=== PATIENT | female | born 1935 | race Caucasian/White ===

== ENCOUNTER 2017-12-07 19:44 | Inpatient (IN) | payer MEDICARE ==
[~2017-12-07] VITALS: Ht 157.5 cm; Wt 63.7 kg
[2017-12-07 20:00] LABS: BASOPHILS # (AUTO) 0.1 (0.0-0.1); BASOPHILS % 0.3 % (0.0-1.0); HEMATOCRIT 32.3 % (34.2-44.1); LYMPHOCYTES # (AUTO) 1.1 (1.0-3.2); MEAN CORPUSCULAR HEMOGLOBIN 31.3 pg (28-32); MEAN CORPUSCULAR HGB CONC 34.1 g/dL (31-35); MONOCYTES # (AUTO) 1.6 (0.2-0.8); MONOCYTES % 5.7 % (4.4-11.3); NEUTROPHILS # (AUTO) 24.1 (2.1-6.9); NEUTROPHILS % 88.4 % (38.7-80.0); PLATELET COUNT 152 x10e3/uL (140-360); RED BLOOD COUNT 3.51 x10e6/uL (3.6-5.1); RED CELL DISTRIBUTION WIDTH 13.1 % (11.7-14.4)
[2017-12-07] MEDS ORDERED: CEFTRIAXONE SOD 1 GM VIAL IV ONE (20:00)
[2017-12-07] MEDS ORDERED: SODIUM CHLORIDE 0.9% 1000ML 1,000 ML IV ONE (20:00)
[2017-12-07] MEDS: ACETAMINOPHEN 1000 MG/100 ML IV STA ×2 (20:01→20:49)
[2017-12-07 20:09] LABS: BILIRUBIN,URINE NEGATIVE (NEGATIVE); CLARITY,URINE CLOUDY (CLEAR); COLOR,URINE YELLOW (YELLOW); KETONES,URINE NEGATIVE (NEGATIVE); LEUKOCYTE ESTERASE ,URINE 1+ (NEGATIVE); NITRITE,URINE NEGATIVE (NEGATIVE); PROTEIN,URINE DIPSTICK 2+ (NEGATIVE); URINE UROBILINOGEN 0.2 mg/dL (0.2 - 1)
[2017-12-07 20:13] LABS: ALBUMIN 2.4 g/dL (3.5-5.0); ALBUMIN/GLOBULIN RATIO 0.6 (0.8-2.0); ANION GAP 16.5 mmol/L (8-16); CALCIUM 9.4 mg/dL (8.4-10.2); CREATININE, SERUM 1.26 mg/dL (0.57-1.11); POTASSIUM 3.5 mmol/L (3.5-5.1)
[2017-12-07 20:17] LABS: CREATINE KINASE MB 0.4 ng/mL (0-5.0)
[2017-12-07 20:21] LABS: RBC,URINE 0-5 /HPF (0-5); WBC,URINE (MAN) >50 /HPF (0-5)
[2017-12-07 20:22] LABS: BACTERIA,URINE MANY /HPF; EPITHELIAL CELLS,URINE FEW /LPF
[2017-12-07 20:27] LABS: LYMPHOCYTES % (MANUAL) 5 % (19-48); MONOCYTES % (MANUAL) 3 % (3.4-9.0); NEUTROPHILS % (MANUAL) 86 % (40-74)
[2017-12-07 20:28] LABS: BAND NEUTROPHILS % (MANUAL) 6 %; PLATELET ESTIMATE ADEQUATE; PLATELET MORPHOLOGY COMMENT NORMAL; RBC MORPHOLOGY COMMENT NORMAL
[2017-12-07 23:00] VITALS: BP 136/80
--- NOTE | 2017-12-07 23:41 | Diagnostic Imaging Report ---
CHEST 1 VIEW, 12/07/2017 10:51 PM Technique: CHEST 1 VIEW Comparison: None available. Clinical history: fever Findings: See Impression Impression: Limited single portable view of the chest. 1. Mildly enlarged cardiac silhouette, accentuated by technique. Aortic atherosclerotic calcifications. 2. Scattered linear scarring or atelectasis. No edema or consolidation. 3. No effusion or pneumothorax. Signed by: Dr Jaylin Zhu MD on 12/07/2017 11:15 PM
[2017-12-07] MEDS ORDERED: DAILY VITE1 EACH PO (23:43)
[2017-12-07] MEDS ORDERED: CARVEDILOL3.125 MG PO (23:43)
[2017-12-07] MEDS ORDERED: VITAMIN E400 UNI1 PO (23:43)
[2017-12-07] MEDS ORDERED: PRESERVISION A1 EACH PO (23:43)
[2017-12-07] MEDS ORDERED: CRANBERRY CONC500 MG PO (23:43)
[2017-12-07] MEDS ORDERED: ASPIRIN81 MG PO (23:43)
[2017-12-07] MEDS ORDERED: ARICEPT5 MG PO (23:43)
[2017-12-07] MEDS ORDERED: ATORVASTATIN CA20 MG PO (23:43)
[2017-12-07] MEDS ORDERED: ESTER-C 500 MG1 EACH PO (23:43)
[2017-12-07] MEDS ORDERED: CLONIDINE HCL0.1 MG PO (23:43)
[2017-12-07] MEDS ORDERED: [UNRECOGNIZED DRUG - OTHER] PO (23:43)
[2017-12-07] MEDS ORDERED: CALCITRATE + V1 EACH PO (23:43)
[2017-12-07] MEDS ORDERED: DOCUSATE SODIU100 MG PO (23:43)
[2017-12-07] MEDS ORDERED: FOLIC ACID1 MG PO (23:43)
[2017-12-07] MEDS ORDERED: THERA-M CAPLET1 EAC1 PO (23:43)
[2017-12-07] MEDS ORDERED: PANTOPRAZOLE SO40 MG PO (23:43)
[2017-12-07] MEDS ORDERED: VITAMIN B-121000 MCG PO (23:43)
[2017-12-07] MEDS ORDERED: FUROSEMIDE40 MG PO (23:43)
[2017-12-07] MEDS ORDERED: NIFEDIPINE ER30 M1 PO (23:43)
[2017-12-07] MEDS ORDERED: ALENDRONATE SOD10 MG PO (23:43)
[2017-12-07] MEDS ORDERED: VITAMIN D250000 UNIT PO (23:43)
[2017-12-07] MEDS ORDERED: HYDRALAZINE HCL25 MG PO ×2 (23:43→23:56)
[2017-12-07] MEDS ORDERED: CLOPIDOGREL75 MG PO (23:43)
[2017-12-07] MEDS ORDERED: FERROUS SULFAT325 MG PO (23:43)
[2017-12-07] MEDS ORDERED: NITROSTAT0.4 MG SL (23:56)
[2017-12-07] MEDS ORDERED: LOPERAMIDE2 MG PO (23:56)
[2017-12-07] MEDS ORDERED: ACETAMINOPHEN325 M1 PO (23:56)
[2017-12-07] MEDS ORDERED: NORCO 5-325 TA1 EACH PO ×2 (23:56)
[2017-12-08] VITALS (8 sets, daily range): BP systolic 121–174; BP diastolic 6–77
[2017-12-08] MEDS ORDERED: ONDANSETRON HCL INJ 2 MG/ML VIAL IV PRN
[2017-12-08] MEDS ORDERED: SODIUM CHLORIDE 0.9% 1000ML 1,000 ML IV ONE
[2017-12-08] MEDS ORDERED: ACETAMINOPHEN 1000 MG/100 ML IV STA (00:34)
[2017-12-08] MEDS ORDERED: SODIUM CHLORIDE 0.9% 1000ML 1,000 ML ONE (05:31)
[2017-12-08 07:05] LABS: BASOPHILS # (AUTO) 0.1 (0.0-0.1); BASOPHILS % 0.3 % (0.0-1.0); HEMATOCRIT 30.7 % (34.2-44.1); HEMOGLOBIN 10.4 g/dL (12.0-16.0); LYMPHOCYTES # (AUTO) 0.7 (1.0-3.2); LYMPHOCYTES % 3.2 % (18.0-39.1); MEAN CORPUSCULAR HEMOGLOBIN 31.5 pg (28-32); MEAN CORPUSCULAR HGB CONC 33.9 g/dL (31-35); MONOCYTES # (AUTO) 1.2 (0.2-0.8); NEUTROPHILS # (AUTO) 18.7 (2.1-6.9); NEUTROPHILS % 89.8 % (38.7-80.0); PLATELET COUNT 139 x10e3/uL (140-360); RED CELL DISTRIBUTION WIDTH 13.1 % (11.7-14.4)
[2017-12-08 07:36] LABS: ALBUMIN 2.1 g/dL (3.5-5.0); ALBUMIN/GLOBULIN RATIO 0.5 (0.8-2.0); ANION GAP 13.3 mmol/L (8-16); CALCIUM 8.8 mg/dL (8.4-10.2); CREATININE, SERUM 0.96 mg/dL (0.57-1.11); POTASSIUM 3.3 mmol/L (3.5-5.1)
[2017-12-08] MEDS ORDERED: DEXTROSE 50% SYRINGE 50 ML IV PRN (10:30)
[2017-12-08] MEDS: INSULIN LISPRO 100 UNIT/1 ML 3ML VIAL SQ SCH ×3 (11:30→21:00)
[2017-12-08] MEDS ORDERED: POTASSIUM CHLORIDE 20 MEQ TAB CR PO STA (12:49)
[2017-12-08] MEDS ORDERED: HYDROCODONE/APAP 5MG-325MG TAB PO PRN (13:00)
--- NOTE | 2017-12-08 14:02 | Diagnostic Imaging Report ---
PROCEDURE: A single AP view of the chest. COMPARISON: 12/07/17 INDICATIONS: SHORTNESS OF BREATH FINDINGS: limited by mild rotation. Lines/tubes: None. Lungs: The lungs are well inflated. Biapical scaring. Suspected mild interstitial edema. Pleura: There is no significant pleural effusion or pneumothorax. Heart and mediastinum: Prominent cardiomediastinal silhouette, accentuated by rotation and technique. Aorta is calcified and tortuous. Bones: No acute bony abnormality. IMPRESSION: Limited by mild rotation. Suspected mild interstitial edema. Dictated by: Obey Ramos M.D. on 12/08/2017 at 14:09 Electronically approved by: Obey Ramos M.D. on 12/08/2017 at 14:09
[2017-12-08] MEDS: CEFEPIME HCL 1 GM VIAL IV SCH (14:19)
[2017-12-08] MEDS ORDERED: DIATRIZOATE MEGL/DIATRIZOA SOD 30 ML BTL PO ONE (14:43)
[2017-12-08] MEDS: IPRATROPIUM BROMIDE 0.02% 2.5 ML NEB NEB SCH ×2 (14:53→19:15)
[2017-12-08] MEDS: CARVEDILOL 3.125 MG TAB PO SCH (17:00)
[2017-12-08] MEDS: HYDRALAZINE HCL 25 MG TAB PO SCH (17:30)
--- NOTE | 2017-12-08 19:36 | Diagnostic Imaging Report ---
EXAM: CT Abdomen and Pelvis WITHOUT contrast INDICATION: \S\abd pain fever \[id number] \S\[id number] COMPARISON: None. TECHNIQUE: Abdomen and pelvis were scanned utilizing a multidetector helical scanner from the lung base to the pubic symphysis without administration of IV contrast. Absence of intravenous contrast decreases sensitivity for detection of focal lesions and vascular pathology. Coronal and sagittal reformations were obtained. Routine protocol was performed. IV CONTRAST: None ORAL CONTRAST: Gastrografin. COMPLICATIONS: None RADIATION DOSE: Total DLP: 395.23 mGy*cm Estimated effective dose: (DLP x 0.015 x size factor) mSv CTDIvol has been reviewed. It is below the limits set by the Radiation Protocol Committee (RPC). FINDINGS: LINES and TUBES: Lange catheter in place. LOWER THORAX: Partially imaged coronary artery calcifications and possibly stent, mitral valve calcification, and aortic annulus stent. Trace right pleural effusion with adjacent compressive atelectasis. Bibasilar linear atelectasis/scarring. HEPATOBILIARY: Unenhanced liver is unremarkable. No biliary ductal dilation. GALLBLADDER: No radio-opaque stones or sludge. No wall thickening. SPLEEN: No splenomegaly. PANCREAS: No focal masses or ductal dilatation. ADRENALS: 2.5 x 3.5 cm left adrenal mass with internal fat density (series 2, image 20) us. KIDNEYS/URETERS: No hydronephrosis. Limited for evaluation of renal parenchyma without intravenous contrast. Right renal perinephric fat stranding. No stones. GI TRACT: No abnormal distention, wall thickening, or evidence of bowel obstruction. Colonic diverticulosis without evidence of diverticulitis. Appendix is not visualized with certainty. Contrast is visualized within colon. PELVIC ORGANS/BLADDER: Limited evaluation of pelvic organs due to streak artifacts from bilateral hip prosthesis. Partially imaged calcified uterine vessels and probably a small left uterine calcified fibroid. LYMPH NODES: No lymphadenopathy. VESSELS: There is severe atherosclerotic disease in the aorta and major arterial branches. PERITONEUM / RETROPERITONEUM: No free air or fluid. BONES: Bilateral hip arthroplasty. Generalized demineralization limits evaluation. Severe T12 compression fracture of indeterminate age. Grade 1 retrolisthesis of L4 in relation to L3 and L5 in relation to L4. SOFT TISSUES: Unremarkable. IMPRESSION: 1. Limited study without intravenous contrast. 2. Mildly prominent right kidney with increased right perinephric fat stranding. Infectious process like pyelonephritis cannot be excluded. 3. Colonic diverticulosis without evidence of diverticulitis. 4. Severe arteriosclerosis. 5. Trace right pleural effusion with adjacent compressive atelectasis. 6. 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 Signed by: Dr. Obey Ramos MD on 12/08/2017 6:48 PM
[2017-12-08] MEDS ORDERED: CEFTRIAXONE SOD 1 GM VIAL IV SCH ×2 (20:00)
[2017-12-08] MEDS: ACETAMINOPHEN 325 MG TAB PO PRN (20:50)
[2017-12-08] MEDS: ATORVASTATIN 40 MG TAB PO SCH (20:57)
[2017-12-08] MEDS: HEPARIN SOD (PORCINE) 5,000 UNIT/ML VIAL SC SCH (20:59)
[2017-12-08] MEDS ORDERED: ATORVASTATIN 20 MG TAB PO SCH (21:00)
[2017-12-09] MEDS: CEFEPIME HCL 1 GM VIAL IV SCH (00:54)
[2017-12-09 05:16] LABS: BASOPHILS # (AUTO) 0.1 (0.0-0.1); BASOPHILS % 0.5 % (0.0-1.0); HEMATOCRIT 32.5 % (34.2-44.1); HEMOGLOBIN 11.1 g/dL (12.0-16.0); LYMPHOCYTES # (AUTO) 0.7 (1.0-3.2); LYMPHOCYTES % 5.2 % (18.0-39.1); MEAN CORPUSCULAR HEMOGLOBIN 31.1 pg (28-32); MEAN CORPUSCULAR HGB CONC 34.2 g/dL (31-35); MONOCYTES # (AUTO) 1.1 (0.2-0.8); MONOCYTES % 7.9 % (4.4-11.3); NEUTROPHILS # (AUTO) 11.5 (2.1-6.9); NEUTROPHILS % 84.6 % (38.7-80.0); PLATELET COUNT 146 x10e3/uL (140-360); RED BLOOD COUNT 3.57 x10e6/uL (3.6-5.1); RED CELL DISTRIBUTION WIDTH 13.2 % (11.7-14.4)
[2017-12-09 05:50] LABS: ANION GAP 15.6 mmol/L (8-16); BLOOD UREA NITROGEN 26 mg/dL (7-26); BUN/CREATININE RATIO 31 (6-25); CALCIUM 8.8 mg/dL (8.4-10.2); CARBON DIOXIDE 24 mmol/L (22-29); CHLORIDE 102 mmol/L (98-107); CREATININE, SERUM 0.83 mg/dL (0.57-1.11); EST GLOMERULAR FILTRATION RATE > 60 ML/MIN (60-); GLUCOSE 151 mg/dL (74-118); POTASSIUM 3.6 mmol/L (3.5-5.1); SODIUM 138 mmol/L (136-145)
[2017-12-09 06:33] VITALS: BP 166/75
[2017-12-09 07:45] VITALS: BP 166/75
[2017-12-09] MEDS: IPRATROPIUM BROMIDE 0.02% 2.5 ML NEB NEB SCH ×4 (07:45→20:00)
[2017-12-09 08:00] VITALS: BP 166/77
[2017-12-09] MEDS: INSULIN LISPRO 100 UNIT/1 ML 3ML VIAL SQ SCH ×4 (08:30→21:37)
[2017-12-09] MEDS: HEPARIN SOD (PORCINE) 5,000 UNIT/ML VIAL SC SCH ×2 (08:45→21:37)
[2017-12-09] MEDS: HYDRALAZINE HCL 25 MG TAB PO SCH ×2 (08:45→17:00)
[2017-12-09] MEDS: CARVEDILOL 3.125 MG TAB PO SCH ×2 (08:45→17:00)
[2017-12-09] MEDS: ASPIRIN 81 MG CHEW TAB PO SCH (08:45)
[2017-12-09] MEDS ORDERED: DONEPEZIL HCL 5 MG TAB PO SCH (09:00)
[2017-12-09] MEDS: ARICEPT 23 MG PO SCH (09:00)
[2017-12-09 12:00] VITALS: BP 187/85
[2017-12-09] MEDS: CEFTRIAXONE SOD 1 GM VIAL IV SCH (14:40)
[2017-12-09] MEDS: ACETAMINOPHEN 325 MG TAB PO PRN (16:22)
[2017-12-09 16:26] VITALS: BP 178/76
[2017-12-09] MEDS: LACTOBACILLUS ACIDOPHILUS CAPSULE PO SCH (17:00)
[2017-12-09] MEDS: VANCOMYCIN 250MG/5ML ORAL SOLN PO SCH (18:00)
[2017-12-09 20:00] VITALS: BP 156/76
[2017-12-09] MEDS: ATORVASTATIN 40 MG TAB PO SCH (21:35)
[2017-12-10] VITALS (7 sets, daily range): BP systolic 151–192; BP diastolic 75–96
[2017-12-10] MEDS: VANCOMYCIN 250MG/5ML ORAL SOLN PO SCH ×5 (00:20→23:54)
[2017-12-10 05:32] LABS: BASOPHILS # (AUTO) 0.1 (0.0-0.1); BASOPHILS % 0.4 % (0.0-1.0); HEMATOCRIT 33.2 % (34.2-44.1); HEMOGLOBIN 11.2 g/dL (12.0-16.0); LYMPHOCYTES # (AUTO) 1.3 (1.0-3.2); MEAN CORPUSCULAR HEMOGLOBIN 30.8 pg (28-32); MEAN CORPUSCULAR HGB CONC 33.7 g/dL (31-35); MEAN CORPUSCULAR VOLUME 91.2 fL (81-99); MONOCYTES # (AUTO) 1.6 (0.2-0.8); MONOCYTES % 11.4 % (4.4-11.3); NEUTROPHILS # (AUTO) 10.6 (2.1-6.9); NEUTROPHILS % 76.7 % (38.7-80.0); PLATELET COUNT 182 x10e3/uL (140-360); RED BLOOD COUNT 3.64 x10e6/uL (3.6-5.1); RED CELL DISTRIBUTION WIDTH 13.6 % (11.7-14.4)
[2017-12-10 05:49] LABS: ANION GAP 16.2 mmol/L (8-16); BLOOD UREA NITROGEN 20 mg/dL (7-26); BUN/CREATININE RATIO 25 (6-25); CALCIUM 8.6 mg/dL (8.4-10.2); CARBON DIOXIDE 24 mmol/L (22-29); CHLORIDE 99 mmol/L (98-107); CREATININE, SERUM 0.79 mg/dL (0.57-1.11); EST GLOMERULAR FILTRATION RATE > 60 ML/MIN (60-); GLUCOSE 131 mg/dL (74-118); POTASSIUM 3.2 mmol/L (3.5-5.1); SODIUM 136 mmol/L (136-145)
[2017-12-10] MEDS: INSULIN LISPRO 100 UNIT/1 ML 3ML VIAL SQ SCH ×4 (07:30→21:53)
[2017-12-10] MEDS: IPRATROPIUM BROMIDE 0.02% 2.5 ML NEB NEB SCH ×4 (07:30→19:10)
[2017-12-10] MEDS: ASPIRIN 81 MG CHEW TAB PO SCH (08:42)
[2017-12-10] MEDS: HYDRALAZINE HCL 25 MG TAB PO SCH ×3 (08:42→21:53)
[2017-12-10] MEDS: LACTOBACILLUS ACIDOPHILUS CAPSULE PO SCH ×2 (08:43→17:55)
[2017-12-10] MEDS: ARICEPT 23 MG PO SCH (08:43)
[2017-12-10] MEDS: CARVEDILOL 3.125 MG TAB PO SCH ×2 (08:43→17:56)
[2017-12-10] MEDS: HEPARIN SOD (PORCINE) 5,000 UNIT/ML VIAL SC SCH ×2 (08:49→21:53)
[2017-12-10] MEDS: CEFTRIAXONE SOD 1 GM VIAL IV SCH (12:56)
[2017-12-10] MEDS ORDERED: SODIUM CHLORIDE 0.9% 1000ML 1,000 ML IV SCH (15:00)
[2017-12-10] MEDS ORDERED: POTASSIUM CHLORIDE 20 MEQ TAB CR PO NR (15:30)
[2017-12-10] MEDS: ATORVASTATIN 40 MG TAB PO SCH (21:53)
[2017-12-11] VITALS (9 sets, daily range): BP systolic 139–186; BP diastolic 63–85
[2017-12-11 05:57] LABS: BASOPHILS # (AUTO) 0.1 (0.0-0.1); BASOPHILS % 0.5 % (0.0-1.0); HEMATOCRIT 30.7 % (34.2-44.1); HEMOGLOBIN 10.3 g/dL (12.0-16.0); LYMPHOCYTES # (AUTO) 1.5 (1.0-3.2); LYMPHOCYTES % 8.3 % (18.0-39.1); MEAN CORPUSCULAR HEMOGLOBIN 30.9 pg (28-32); MEAN CORPUSCULAR HGB CONC 33.6 g/dL (31-35); MEAN CORPUSCULAR VOLUME 92.2 fL (81-99); MONOCYTES # (AUTO) 1.3 (0.2-0.8); MONOCYTES % 7.5 % (4.4-11.3); NEUTROPHILS # (AUTO) 14.3 (2.1-6.9); NEUTROPHILS % 81.6 % (38.7-80.0); PLATELET COUNT 181 x10e3/uL (140-360); RED BLOOD COUNT 3.33 x10e6/uL (3.6-5.1); RED CELL DISTRIBUTION WIDTH 13.8 % (11.7-14.4)
[2017-12-11 06:08] LABS: ANION GAP 12.7 mmol/L (8-16); BLOOD UREA NITROGEN 27 mg/dL (7-26); BUN/CREATININE RATIO 33 (6-25); CALCIUM 7.9 mg/dL (8.4-10.2); CARBON DIOXIDE 23 mmol/L (22-29); CHLORIDE 103 mmol/L (98-107); CREATININE, SERUM 0.81 mg/dL (0.57-1.11); EST GLOMERULAR FILTRATION RATE > 60 ML/MIN (60-); GLUCOSE 153 mg/dL (74-118); MAGNESIUM 1.2 MG/DL (1.3-2.1); POTASSIUM 3.7 mmol/L (3.5-5.1); SODIUM 135 mmol/L (136-145)
[2017-12-11] MEDS: VANCOMYCIN 250MG/5ML ORAL SOLN PO SCH ×3 (06:39→17:08)
[2017-12-11] MEDS: IPRATROPIUM BROMIDE 0.02% 2.5 ML NEB NEB SCH ×4 (07:08→19:40)
[2017-12-11 07:14] LABS: LYMPHOCYTES % (MANUAL) 8 % (19-48); MONOCYTES % (MANUAL) 2 % (3.4-9.0); NEUTROPHILS % (MANUAL) 90 % (40-74); RBC MORPHOLOGY COMMENT NORMAL
[2017-12-11 07:15] LABS: HYPOCHROMASIA SLIGHT; PLATELET ESTIMATE ADEQUATE; PLATELET MORPHOLOGY COMMENT FEW LARGE
[2017-12-11] MEDS: INSULIN LISPRO 100 UNIT/1 ML 3ML VIAL SQ SCH ×4 (07:30→22:14)
[2017-12-11] MEDS: ARICEPT 23 MG PO SCH (08:00)
[2017-12-11] MEDS: ASPIRIN 81 MG CHEW TAB PO SCH (08:06)
[2017-12-11] MEDS: HYDRALAZINE HCL 25 MG TAB PO SCH ×3 (08:06→22:14)
[2017-12-11] MEDS: LACTOBACILLUS ACIDOPHILUS CAPSULE PO SCH ×2 (08:07→17:08)
[2017-12-11] MEDS: CARVEDILOL 3.125 MG TAB PO SCH (08:07)
[2017-12-11] MEDS: HEPARIN SOD (PORCINE) 5,000 UNIT/ML VIAL SC SCH ×2 (08:19→22:15)
[2017-12-11] MEDS: CEFTRIAXONE SOD 1 GM VIAL IV SCH (13:02)
[2017-12-11] MEDS ORDERED: CARVEDILOL 3.125 MG TAB PO SCH (17:00)
[2017-12-11] MEDS: ATORVASTATIN 40 MG TAB PO SCH (22:15)
[2017-12-12] VITALS (9 sets, daily range): BP systolic 143–194; BP diastolic 70–86
[2017-12-12] MEDS: VANCOMYCIN 250MG/5ML ORAL SOLN PO SCH ×5 (00:28→23:50)
[2017-12-12 05:49] LABS: BASOPHILS # (AUTO) 0.1 (0.0-0.1); BASOPHILS % 0.4 % (0.0-1.0); HEMATOCRIT 28.7 % (34.2-44.1); HEMOGLOBIN 9.7 g/dL (12.0-16.0); LYMPHOCYTES # (AUTO) 1.6 (1.0-3.2); LYMPHOCYTES % 10.4 % (18.0-39.1); MEAN CORPUSCULAR HEMOGLOBIN 31.1 pg (28-32); MEAN CORPUSCULAR HGB CONC 33.8 g/dL (31-35); MONOCYTES # (AUTO) 0.9 (0.2-0.8); MONOCYTES % 5.6 % (4.4-11.3); NEUTROPHILS # (AUTO) 12.6 (2.1-6.9); NEUTROPHILS % 81.9 % (38.7-80.0); PLATELET COUNT 230 x10e3/uL (140-360); RED BLOOD COUNT 3.12 x10e6/uL (3.6-5.1); RED CELL DISTRIBUTION WIDTH 13.9 % (11.7-14.4)
[2017-12-12 06:09] LABS: ALANINE AMINOTRANSFERASE 61 IU/L (0-55); ALBUMIN 1.8 g/dL (3.5-5.0); ALKALINE PHOSPHATASE 145 IU/L (40-150); ANION GAP 13.5 mmol/L (8-16); BILIRUBIN,DIRECT 0.3 mg/dL (0.0-0.5); BLOOD UREA NITROGEN 26 mg/dL (7-26); BUN/CREATININE RATIO 33 (6-25); CARBON DIOXIDE 23 mmol/L (22-29); CHLORIDE 102 mmol/L (98-107); CREATININE, SERUM 0.79 mg/dL (0.57-1.11); EST GLOMERULAR FILTRATION RATE > 60 ML/MIN (60-); GLUCOSE 148 mg/dL (74-118); MAGNESIUM 1.2 MG/DL (1.3-2.1); POTASSIUM 3.5 mmol/L (3.5-5.1); SODIUM 135 mmol/L (136-145)
[2017-12-12] MEDS: IPRATROPIUM BROMIDE 0.02% 2.5 ML NEB NEB SCH ×4 (07:20→19:35)
[2017-12-12] MEDS: INSULIN LISPRO 100 UNIT/1 ML 3ML VIAL SQ SCH ×4 (07:30→20:18)
[2017-12-12] MEDS: ASPIRIN 81 MG CHEW TAB PO SCH (08:23)
[2017-12-12] MEDS: ARICEPT 23 MG PO SCH (08:23)
[2017-12-12] MEDS: HEPARIN SOD (PORCINE) 5,000 UNIT/ML VIAL SC SCH ×2 (08:23→20:17)
[2017-12-12] MEDS: HYDRALAZINE HCL 25 MG TAB PO SCH ×3 (08:23→20:24)
[2017-12-12] MEDS: LACTOBACILLUS ACIDOPHILUS CAPSULE PO SCH ×2 (08:23→17:41)
--- NOTE | 2017-12-12 11:34 | Consultation ---
DATE OF CONSULTATION: December 12, 2017 REASON FOR CONSULTATION: Worsening leukocytosis. Thank you, Dr. Henry, for asking me see this patient. HISTORY: The patient is an 82-year-old woman referred for worsening leukocytosis. She was admitted through the emergency department with acute urinary tract infection with cystitis. She was sent to the emergency department from a shelter on 12/07/2017 with fever, nausea, vomiting, diarrhea and hematuria. The patient developed dysuria a few days prior. In the emergency room, she was noted to have a temperature of 100.3 degrees Fahrenheit, pulse 99, respiratory rate 16, blood pressure 145/70, and oxygen saturation 96% on room air. Initial laboratory studies showed blood leukocyte count of 27,200 with 88% segments, BUN 42, creatinine 1.6, and abnormal urine analysis. A CT scan of the abdomen and pelvis showed mildly prominent right kidney with increased perinephric stranding. Urine and blood cultures later grew E. coli. PAST MEDICAL HISTORY: Diabetes mellitus type 2, hypertension, hyperlipidemia, congestive heart failure, frequent falls due to syncope/aortic valve disease, recurrent urinary tract infection, and dementia. PAST SURGICAL HISTORY: Transcatheter aortic valve replacement, bilateral open reduction and internal fixation of the hips and a repeat left femoral fracture, managed conservatively. ALLERGIES: PENICILLIN AND METOPROLOL. MEDICATIONS: The current antibiotics are ceftriaxone 1 gram IV piggyback q.24 hours and vancomycin 125 mg p.o. q.6 hours. IMMUNIZATION: She received pneumococcal vaccination prior to admission. FAMILY HISTORY: Significant for diabetes mellitus type 2. SOCIAL HISTORY: She is a shelter resident. No alcohol or tobacco use. REVIEW OF SYSTEMS: As per history of present illness. The patient feels much better since admission on monitoring. PHYSICAL EXAMINATION VITALS: T-max 98.3, pulse 98, respiratory rate 18, blood pressure 185/85, weight 140 pounds. GENERAL: No acute distress. HEENT: Normocephalic. There is no icterus or injection of conjunctivae. There is no ear or nasal discharge. Moist oral mucosa. No pharyngeal erythema or exudate. NECK: Supple. No lymphadenopathy or meningismus. LUNGS: Good air entry bilaterally. HEART: Normal S1 and S2. ABDOMEN: Soft. EXTREMITIES: There is no edema, clubbing or cyanosis. SKIN: There is acute erythema. IS ANALYST: Awake, alert, and oriented to person, place, and time. LABORATORY DATA: WBC 15,440, hemoglobin 9.7, platelet 230,000, neutrophils 81.9, lymph 10.4, mono 5.6, eosinophils 0, basophils 0.4. BUN 26, creatinine 0.79, blood glucose 146. On 12/09/2017, stool C. difficile positive. IMPRESSIONS 1. Urinary tract infection with sepsis and bacteremia due to Escherichia coli, present on admission. 2. Clostridium difficile colitis present on admission. PLANS 1. The patient is on adequate antibiotic, although the oral vancomycin may be increased to 250 mg q.6 hours. Seven days of ceftriaxone should do. Anticipate total of 10 days of oral vancomycin. 2. Encouraged oral fluid intake. Electrolytes management as per internal medicine. Job#: [id number] ISIDRO
[2017-12-12] MEDS: CEFTRIAXONE SOD 1 GM VIAL IV SCH (12:26)
[2017-12-12] MEDS ORDERED: POTASSIUM CHLORIDE 20 MEQ TAB CR PO STA (14:03)
[2017-12-12] MEDS ORDERED: MAGNESIUM SULFATE 2GM/50ML 50 ML IV ONE (14:15)
[2017-12-12] MEDS ORDERED: NIFEDIPINE CR 30 MG TAB PO SCH (14:15)
[2017-12-12] MEDS ORDERED: NIFEDIPINE CR 30 MG TAB PO NR (18:15)
[2017-12-12] MEDS: ATORVASTATIN 40 MG TAB PO SCH (20:24)
[2017-12-13] VITALS (8 sets, daily range): BP systolic 143–168; BP diastolic 64–77
[2017-12-13 05:18] LABS: BASOPHILS # (AUTO) 0.1 (0.0-0.1); BASOPHILS % 0.5 % (0.0-1.0); HEMATOCRIT 30.9 % (34.2-44.1); HEMOGLOBIN 10.4 g/dL (12.0-16.0); LYMPHOCYTES # (AUTO) 1.7 (1.0-3.2); LYMPHOCYTES % 11.2 % (18.0-39.1); MEAN CORPUSCULAR HGB CONC 33.7 g/dL (31-35); MONOCYTES # (AUTO) 0.8 (0.2-0.8); NEUTROPHILS # (AUTO) 12.6 (2.1-6.9); NEUTROPHILS % 81.5 % (38.7-80.0); PLATELET COUNT 293 x10e3/uL (140-360); RED BLOOD COUNT 3.36 x10e6/uL (3.6-5.1)
[2017-12-13 06:00] LABS: ANION GAP 13.1 mmol/L (8-16); BLOOD UREA NITROGEN 23 mg/dL (7-26); BUN/CREATININE RATIO 31 (6-25); CALCIUM 8.4 mg/dL (8.4-10.2); CARBON DIOXIDE 24 mmol/L (22-29); CHLORIDE 102 mmol/L (98-107); CREATININE, SERUM 0.74 mg/dL (0.57-1.11); EST GLOMERULAR FILTRATION RATE > 60 ML/MIN (60-); GLUCOSE 162 mg/dL (74-118); MAGNESIUM 1.5 MG/DL (1.3-2.1); POTASSIUM 4.1 mmol/L (3.5-5.1); SODIUM 135 mmol/L (136-145)
[2017-12-13] MEDS: VANCOMYCIN 250MG/5ML ORAL SOLN PO SCH ×3 (06:04→18:25)
[2017-12-13] MEDS: IPRATROPIUM BROMIDE 0.02% 2.5 ML NEB NEB SCH ×4 (07:28→19:30)
[2017-12-13] MEDS: ARICEPT 23 MG PO SCH (09:00)
[2017-12-13] MEDS: HYDRALAZINE HCL 25 MG TAB PO SCH ×3 (09:05→21:51)
[2017-12-13] MEDS: ASPIRIN 81 MG CHEW TAB PO SCH (09:05)
[2017-12-13] MEDS: HEPARIN SOD (PORCINE) 5,000 UNIT/ML VIAL SC SCH ×2 (09:06→21:52)
[2017-12-13] MEDS: LACTOBACILLUS ACIDOPHILUS CAPSULE PO SCH ×2 (09:06→18:25)
[2017-12-13] MEDS: INSULIN LISPRO 100 UNIT/1 ML 3ML VIAL SQ SCH ×4 (09:06→21:52)
[2017-12-13] MEDS: NIFEDIPINE CR 30 MG TAB PO SCH (09:06)
[2017-12-13] MEDS: CEFTRIAXONE SOD 1 GM VIAL IV SCH (12:48)
--- NOTE | 2017-12-13 15:22 | Diagnostic Imaging Report ---
EXAMINATION: CHEST SINGLE (PORTABLE) INDICATION: \S\leukocytosis COMPARISON: Chest radiograph 12/07/2017 FINDINGS: AP view TUBES and LINES: None. LUNGS: Lungs are well inflated. Worsening patchy airspace opacities throughout both lungs. No lobar consolidations. Mild central bony vascular congestion. PLEURA: No pleural effusion or pneumothorax. HEART AND MEDIASTINUM: The cardiac silhouette is within normal limits. Status post percutaneous aortic valve replacement. Markedly tortuous thoracic aorta. BONES AND SOFT TISSUES: No acute osseous lesion. Soft tissues are unremarkable. UPPER ABDOMEN: No free air under the diaphragm. IMPRESSION: Worsening patchy airspace opacities in both lungs may represent atypical infection. Signed by: Dr. Julienne Chang M.D. on 12/13/2017 3:19 PM
[2017-12-13] MEDS: ATORVASTATIN 40 MG TAB PO SCH (21:51)
--- NOTE | 2017-12-13 23:34 | Diagnostic Imaging Report ---
EXAM: CT CHEST WO INDICATION: Chest pain, shortness of breath, fever, leukocytosis COMPARISON: AP view of the chest December 13, [address] of the abdomen and pelvis December 08, 2017 TECHNIQUE: Multidetector CT scanning of the chest was performed. Coronal and sagittal multiplanar reformations were obtained. Dose modulation, iterative reconstruction, and/or weight based adjustment of the mA/kV was utilized to reduce the radiation dose to as low as reasonably achievable. Routine protocol performed. IV Contrast: None CTDIvol has been reviewed. It is below the limits set by the Radiation Protocol Committee (RPC). FINDINGS: LUNGS AND AIRWAYS: The trachea and major bronchi are unremarkable. Mild septal thickening. Faint mosaic attenuation, likely related to air trapping. Mild bibasilar subsegmental atelectasis. No consolidations. PLEURA: Trace right pleural effusion. HEART, MEDIASTINUM, VESSELS: The heart is mildly enlarged. No abnormal pericardial effusion. Marked calcifications of the thoracic aorta, mitral valve and coronary arteries. Aortic valve stent. No thoracic aortic aneurysm. No mediastinal mass or lymphadenopathy. 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 MUSCULOSKELETAL: Chronic vertebra plana fractures including T11 and T7. IMPRESSION: Mild cardiac enlargement, mild interstitial edema and trace right pleural effusion. No findings of pneumonia. Signed by: Dr. Naomi Mora M.D. on 12/13/2017 11:30 PM
[2017-12-14] VITALS (8 sets, daily range): BP systolic 152–182; BP diastolic 68–80
[2017-12-14] MEDS: VANCOMYCIN 250MG/5ML ORAL SOLN PO SCH ×4 (00:20→16:48)
[2017-12-14 05:38] LABS: BASOPHILS # (AUTO) 0.1 (0.0-0.1); BASOPHILS % 0.3 % (0.0-1.0); EOSINOPHILS % 0.1 % (0.0-6.0); HEMATOCRIT 30.2 % (34.2-44.1); LYMPHOCYTES % 12.5 % (18.0-39.1); MEAN CORPUSCULAR HEMOGLOBIN 30.6 pg (28-32); MEAN CORPUSCULAR HGB CONC 33.1 g/dL (31-35); MEAN CORPUSCULAR VOLUME 92.4 fL (81-99); MONOCYTES # (AUTO) 0.8 (0.2-0.8); MONOCYTES % 4.7 % (4.4-11.3); NEUTROPHILS # (AUTO) 12.9 (2.1-6.9); NEUTROPHILS % 81.1 % (38.7-80.0); PLATELET COUNT 323 x10e3/uL (140-360); RED BLOOD COUNT 3.27 x10e6/uL (3.6-5.1); RED CELL DISTRIBUTION WIDTH 14.1 % (11.7-14.4)
[2017-12-14 05:50] LABS: BLOOD UREA NITROGEN 20 mg/dL (7-26); BUN/CREATININE RATIO 27 (6-25); CALCIUM 8.5 mg/dL (8.4-10.2); CARBON DIOXIDE 23 mmol/L (22-29); CHLORIDE 101 mmol/L (98-107); CREATININE, SERUM 0.74 mg/dL (0.57-1.11); EST GLOMERULAR FILTRATION RATE > 60 ML/MIN (60-); GLUCOSE 162 mg/dL (74-118); MAGNESIUM 1.4 MG/DL (1.3-2.1); SODIUM 133 mmol/L (136-145)
[2017-12-14] MEDS: IPRATROPIUM BROMIDE 0.02% 2.5 ML NEB NEB SCH ×4 (07:21→19:05)
[2017-12-14] MEDS: ARICEPT 23 MG PO SCH (08:57)
[2017-12-14] MEDS: LACTOBACILLUS ACIDOPHILUS CAPSULE PO SCH ×2 (09:21→16:48)
[2017-12-14] MEDS: NIFEDIPINE CR 30 MG TAB PO SCH (09:21)
[2017-12-14] MEDS: HEPARIN SOD (PORCINE) 5,000 UNIT/ML VIAL SC SCH ×2 (09:21→21:40)
[2017-12-14] MEDS: ASPIRIN 81 MG CHEW TAB PO SCH (09:21)
[2017-12-14] MEDS: HYDRALAZINE HCL 25 MG TAB PO SCH ×3 (09:22→21:45)
[2017-12-14] MEDS: INSULIN LISPRO 100 UNIT/1 ML 3ML VIAL SQ SCH ×4 (09:22→21:40)
[2017-12-14] MEDS: CEFTRIAXONE SOD 1 GM VIAL IV SCH (11:56)
[2017-12-14] MEDS: ACETAMINOPHEN 325 MG TAB PO PRN ×2 (11:56→21:40)
[2017-12-14] MEDS ORDERED: MAGNESIUM SULFATE 2GM/50ML 50 ML IV ONE (13:30)
[2017-12-14] MEDS: SODIUM CHLORIDE 0.9% 1000ML 1,000 ML IV SCH (14:44)
[2017-12-14] MEDS: CARVEDILOL 3.125 MG TAB PO SCH (16:48)
[2017-12-14] MEDS: ATORVASTATIN 40 MG TAB PO SCH (21:40)
[2017-12-15] VITALS (9 sets, daily range): BP systolic 121–169; BP diastolic 64–84
[2017-12-15] MEDS: VANCOMYCIN 250MG/5ML ORAL SOLN PO SCH ×5 (00:07→23:57)
[2017-12-15] MEDS: SODIUM CHLORIDE 0.9% 1000ML 1,000 ML IV SCH ×2 (03:00→17:36)
[2017-12-15 06:08] LABS: BASOPHILS # (AUTO) 0.1 (0.0-0.1); BASOPHILS % 0.6 % (0.0-1.0); HEMATOCRIT 28.2 % (34.2-44.1); HEMOGLOBIN 9.3 g/dL (12.0-16.0); LYMPHOCYTES # (AUTO) 1.6 (1.0-3.2); LYMPHOCYTES % 13.8 % (18.0-39.1); MEAN CORPUSCULAR HEMOGLOBIN 30.9 pg (28-32); MEAN CORPUSCULAR VOLUME 93.7 fL (81-99); MONOCYTES # (AUTO) 0.8 (0.2-0.8); MONOCYTES % 6.5 % (4.4-11.3); NEUTROPHILS # (AUTO) 8.8 (2.1-6.9); NEUTROPHILS % 77.2 % (38.7-80.0); PLATELET COUNT 319 x10e3/uL (140-360); RED BLOOD COUNT 3.01 x10e6/uL (3.6-5.1)
[2017-12-15 06:18] LABS: BLOOD UREA NITROGEN 16 mg/dL (7-26); BUN/CREATININE RATIO 23 (6-25); CALCIUM 8.4 mg/dL (8.4-10.2); CARBON DIOXIDE 22 mmol/L (22-29); CHLORIDE 103 mmol/L (98-107); EST GLOMERULAR FILTRATION RATE > 60 ML/MIN (60-); GLUCOSE 167 mg/dL (74-118); MAGNESIUM 1.6 MG/DL (1.3-2.1); SODIUM 134 mmol/L (136-145)
[2017-12-15] MEDS: INSULIN LISPRO 100 UNIT/1 ML 3ML VIAL SQ SCH ×4 (07:30→20:14)
[2017-12-15] MEDS: IPRATROPIUM BROMIDE 0.02% 2.5 ML NEB NEB SCH ×4 (08:03→19:20)
[2017-12-15] MEDS: ARICEPT 23 MG PO SCH (08:52)
[2017-12-15] MEDS: LACTOBACILLUS ACIDOPHILUS CAPSULE PO SCH ×2 (08:52→16:31)
[2017-12-15] MEDS: NIFEDIPINE CR 30 MG TAB PO SCH (08:52)
[2017-12-15] MEDS: CARVEDILOL 3.125 MG TAB PO SCH ×2 (08:52→16:30)
[2017-12-15] MEDS: ASPIRIN 81 MG CHEW TAB PO SCH (08:52)
[2017-12-15] MEDS: HYDRALAZINE HCL 25 MG TAB PO SCH ×3 (08:52→20:13)
[2017-12-15] MEDS: HEPARIN SOD (PORCINE) 5,000 UNIT/ML VIAL SC SCH ×2 (09:07→20:15)
[2017-12-15] MEDS ORDERED: MAGNESIUM SULFATE 2GM/50ML 50 ML IV ONE (11:45)
[2017-12-15] MEDS: CEFTRIAXONE SOD 1 GM VIAL IV SCH (12:44)
[2017-12-15] MEDS: ATORVASTATIN 40 MG TAB PO SCH (20:13)
[2017-12-16 04:20] VITALS: BP 172/70
[2017-12-16 05:07] LABS: BASOPHILS # (AUTO) 0.1 (0.0-0.1); BASOPHILS % 0.6 % (0.0-1.0); HEMATOCRIT 28.7 % (34.2-44.1); HEMOGLOBIN 9.3 g/dL (12.0-16.0); LYMPHOCYTES # (AUTO) 1.9 (1.0-3.2); LYMPHOCYTES % 15.2 % (18.0-39.1); MEAN CORPUSCULAR HGB CONC 32.4 g/dL (31-35); MEAN CORPUSCULAR VOLUME 95.7 fL (81-99); MONOCYTES # (AUTO) 0.9 (0.2-0.8); MONOCYTES % 7.5 % (4.4-11.3); NEUTROPHILS # (AUTO) 9.4 (2.1-6.9); NEUTROPHILS % 75.1 % (38.7-80.0); PLATELET COUNT 337 x10e3/uL (140-360); RED CELL DISTRIBUTION WIDTH 14.3 % (11.7-14.4)
[2017-12-16] MEDS: VANCOMYCIN 250MG/5ML ORAL SOLN PO SCH ×3 (05:14→17:30)
[2017-12-16 05:29] LABS: ANION GAP 13.1 mmol/L (8-16); BLOOD UREA NITROGEN 18 mg/dL (7-26); BUN/CREATININE RATIO 25 (6-25); CALCIUM 8.5 mg/dL (8.4-10.2); CARBON DIOXIDE 22 mmol/L (22-29); CHLORIDE 104 mmol/L (98-107); CREATININE, SERUM 0.72 mg/dL (0.57-1.11); EST GLOMERULAR FILTRATION RATE > 60 ML/MIN (60-); GLUCOSE 172 mg/dL (74-118); MAGNESIUM 1.6 MG/DL (1.3-2.1); POTASSIUM 4.1 mmol/L (3.5-5.1); SODIUM 135 mmol/L (136-145)
[2017-12-16] MEDS: IPRATROPIUM BROMIDE 0.02% 2.5 ML NEB NEB SCH ×4 (06:40→19:35)
[2017-12-16] MEDS: INSULIN LISPRO 100 UNIT/1 ML 3ML VIAL SQ SCH ×4 (07:30→21:00)
[2017-12-16 07:39] VITALS: BP 165/71
[2017-12-16] MEDS: ARICEPT 23 MG PO SCH (08:20)
[2017-12-16] MEDS: CARVEDILOL 3.125 MG TAB PO SCH ×2 (08:37→16:07)
[2017-12-16] MEDS: ASPIRIN 81 MG CHEW TAB PO SCH (08:37)
[2017-12-16] MEDS: HYDRALAZINE HCL 25 MG TAB PO SCH ×3 (08:37→21:00)
[2017-12-16] MEDS: NIFEDIPINE CR 30 MG TAB PO SCH ×2 (08:37→16:07)
[2017-12-16] MEDS: LACTOBACILLUS ACIDOPHILUS CAPSULE PO SCH ×2 (08:37→16:07)
[2017-12-16 11:44] VITALS: BP 142/68
[2017-12-16 12:47] VITALS: BP 142/68
[2017-12-16] MEDS: SODIUM CHLORIDE 0.9% 1000ML 1,000 ML IV SCH (16:01)
[2017-12-16 16:12] VITALS: BP 129/71
[2017-12-16] MEDS ORDERED: CARVEDILOL 12.5 MG TAB PO SCH ×2 (17:00)
[2017-12-16] MEDS ORDERED: CARVEDILOL 3.125 MG TAB PO SCH (17:00)
[2017-12-16] MEDS ORDERED: PNEUMOCOCCAL VACCINE POLYVALENT 23 MCG/0.5 ML VIAL IM NR (19:30)
[2017-12-16 20:00] VITALS: BP 140/69
[2017-12-16] MEDS: ATORVASTATIN 40 MG TAB PO SCH (21:00)
[2017-12-16] MEDS: HEPARIN SOD (PORCINE) 5,000 UNIT/ML VIAL SC SCH (21:00)
[2017-12-17] VITALS (7 sets, daily range): BP systolic 134–175; BP diastolic 54–74
[2017-12-17 05:34] LABS: BASOPHILS # (AUTO) 0.1 (0.0-0.1); BASOPHILS % 0.9 % (0.0-1.0); HEMATOCRIT 28.7 % (34.2-44.1); HEMOGLOBIN 9.3 g/dL (12.0-16.0); LYMPHOCYTES # (AUTO) 2.3 (1.0-3.2); LYMPHOCYTES % 19.1 % (18.0-39.1); MEAN CORPUSCULAR HGB CONC 32.4 g/dL (31-35); MEAN CORPUSCULAR VOLUME 95.7 fL (81-99); MONOCYTES % 8.6 % (4.4-11.3); NEUTROPHILS # (AUTO) 8.2 (2.1-6.9); NEUTROPHILS % 69.4 % (38.7-80.0); PLATELET COUNT 366 x10e3/uL (140-360); RED CELL DISTRIBUTION WIDTH 14.4 % (11.7-14.4)
[2017-12-17 05:53] LABS: ANION GAP 11.8 mmol/L (8-16); BLOOD UREA NITROGEN 20 mg/dL (7-26); BUN/CREATININE RATIO 27 (6-25); CALCIUM 8.6 mg/dL (8.4-10.2); CARBON DIOXIDE 23 mmol/L (22-29); CHLORIDE 103 mmol/L (98-107); CREATININE, SERUM 0.73 mg/dL (0.57-1.11); EST GLOMERULAR FILTRATION RATE > 60 ML/MIN (60-); GLUCOSE 140 mg/dL (74-118); MAGNESIUM 1.2 MG/DL (1.3-2.1); POTASSIUM 3.8 mmol/L (3.5-5.1); SODIUM 134 mmol/L (136-145)
[2017-12-17] MEDS: VANCOMYCIN 250MG/5ML ORAL SOLN PO SCH ×4 (06:00→17:36)
[2017-12-17] MEDS: IPRATROPIUM BROMIDE 0.02% 2.5 ML NEB NEB SCH ×4 (07:00→19:08)
[2017-12-17] MEDS: INSULIN LISPRO 100 UNIT/1 ML 3ML VIAL SQ SCH ×4 (07:48→20:54)
[2017-12-17] MEDS: ASPIRIN 81 MG CHEW TAB PO SCH (08:16)
[2017-12-17] MEDS: NIFEDIPINE CR 30 MG TAB PO SCH ×2 (08:16→16:42)
[2017-12-17] MEDS: CARVEDILOL 3.125 MG TAB PO SCH ×2 (08:16→16:42)
[2017-12-17] MEDS: HYDRALAZINE HCL 25 MG TAB PO SCH ×3 (08:16→20:52)
[2017-12-17] MEDS: LACTOBACILLUS ACIDOPHILUS CAPSULE PO SCH ×2 (08:16→16:42)
[2017-12-17] MEDS: HEPARIN SOD (PORCINE) 5,000 UNIT/ML VIAL SC SCH ×2 (08:17→20:52)
[2017-12-17] MEDS: ARICEPT 23 MG PO SCH (09:00)
[2017-12-17] MEDS ORDERED: MAGNESIUM SULFATE 2GM/50ML 50 ML IV ONE (12:00)
[2017-12-17] MEDS: ATORVASTATIN 40 MG TAB PO SCH (20:52)
[2017-12-18] VITALS (9 sets, daily range): BP systolic 124–144; BP diastolic 60–65
[2017-12-18] MEDS: VANCOMYCIN 250MG/5ML ORAL SOLN PO SCH ×4 (00:31→17:30)
[2017-12-18 05:25] LABS: BASOPHILS # (AUTO) 0.1 (0.0-0.1); BASOPHILS % 0.8 % (0.0-1.0); HEMATOCRIT 27.1 % (34.2-44.1); HEMOGLOBIN 8.9 g/dL (12.0-16.0); LYMPHOCYTES # (AUTO) 2.2 (1.0-3.2); LYMPHOCYTES % 20.1 % (18.0-39.1); MEAN CORPUSCULAR HEMOGLOBIN 31.2 pg (28-32); MEAN CORPUSCULAR HGB CONC 32.8 g/dL (31-35); MEAN CORPUSCULAR VOLUME 95.1 fL (81-99); MONOCYTES % 9.7 % (4.4-11.3); NEUTROPHILS # (AUTO) 7.3 (2.1-6.9); NEUTROPHILS % 67.7 % (38.7-80.0); PLATELET COUNT 352 x10e3/uL (140-360); RED BLOOD COUNT 2.85 x10e6/uL (3.6-5.1); RED CELL DISTRIBUTION WIDTH 14.3 % (11.7-14.4)
[2017-12-18 05:59] LABS: ANION GAP 12.3 mmol/L (8-16); BLOOD UREA NITROGEN 21 mg/dL (7-26); BUN/CREATININE RATIO 29 (6-25); CALCIUM 8.7 mg/dL (8.4-10.2); CARBON DIOXIDE 23 mmol/L (22-29); CHLORIDE 105 mmol/L (98-107); CREATININE, SERUM 0.72 mg/dL (0.57-1.11); EST GLOMERULAR FILTRATION RATE > 60 ML/MIN (60-); GLUCOSE 138 mg/dL (74-118); MAGNESIUM 1.7 MG/DL (1.3-2.1); POTASSIUM 4.3 mmol/L (3.5-5.1); SODIUM 136 mmol/L (136-145)
[2017-12-18] MEDS: IPRATROPIUM BROMIDE 0.02% 2.5 ML NEB NEB SCH ×5 (06:55→23:34)
[2017-12-18] MEDS: INSULIN LISPRO 100 UNIT/1 ML 3ML VIAL SQ SCH ×4 (07:40→20:35)
[2017-12-18] MEDS: HYDRALAZINE HCL 25 MG TAB PO SCH ×3 (08:43→20:34)
[2017-12-18] MEDS: ASPIRIN 81 MG CHEW TAB PO SCH (08:43)
[2017-12-18] MEDS: CARVEDILOL 3.125 MG TAB PO SCH ×2 (08:43→16:55)
[2017-12-18] MEDS: ARICEPT 23 MG PO SCH (08:44)
[2017-12-18] MEDS: HEPARIN SOD (PORCINE) 5,000 UNIT/ML VIAL SC SCH ×2 (08:44→20:34)
[2017-12-18] MEDS: NIFEDIPINE CR 30 MG TAB PO SCH ×2 (08:44→16:55)
[2017-12-18] MEDS: LACTOBACILLUS ACIDOPHILUS CAPSULE PO SCH ×2 (08:44→16:55)
[2017-12-18] MEDS: ATORVASTATIN 40 MG TAB PO SCH (20:34)
[2017-12-18] MEDS: FAMOTIDINE 20 MG TAB PO SCH (21:02)
[2017-12-19 00:19] VITALS: BP 135/61
[2017-12-19] MEDS: VANCOMYCIN 250MG/5ML ORAL SOLN PO SCH ×2 (00:45→06:07)
[2017-12-19 05:13] VITALS: BP 124/58
[2017-12-19] MEDS: IPRATROPIUM BROMIDE 0.02% 2.5 ML NEB NEB SCH ×2 (07:00→12:11)
[2017-12-19] MEDS: INSULIN LISPRO 100 UNIT/1 ML 3ML VIAL SQ SCH ×2 (07:30→12:22)
[2017-12-19] MEDS: ARICEPT 23 MG PO SCH (08:27)
[2017-12-19] MEDS: HYDRALAZINE HCL 25 MG TAB PO SCH (08:35)
[2017-12-19] MEDS: CARVEDILOL 3.125 MG TAB PO SCH (08:35)
[2017-12-19] MEDS: FAMOTIDINE 20 MG TAB PO SCH (08:35)
[2017-12-19] MEDS: LACTOBACILLUS ACIDOPHILUS CAPSULE PO SCH (08:35)
[2017-12-19] MEDS: ASPIRIN 81 MG CHEW TAB PO SCH (08:35)
[2017-12-19] MEDS: NIFEDIPINE CR 30 MG TAB PO SCH (08:36)
[2017-12-19] MEDS: HEPARIN SOD (PORCINE) 5,000 UNIT/ML VIAL SC SCH (08:36)
[2017-12-19 10:29] VITALS: BP 126/66
[2017-12-19 10:38] VITALS: BP 126/60
[2017-12-19] MEDS ORDERED: VANCOMYCIN HCL500 MG PO (14:50)
[2017-12-19] MEDS ORDERED: VANCOCIN HCL250 MG PO (14:52)
--- NOTE | 2017-12-20 02:15 | Discharge Summary ---
PRIMARY CARE DOCTOR: Law Mckeon MD, with [facility]. FINAL DIAGNOSIS: Escherichia coli septicemia present on admission due to acute right-sided pyelonephritis with Clostridium difficile colitis. SECONDARY DIAGNOSES 1. Previous percutaneous aortic valve replacement. 2. Hypertension. 3. DO NOT RESUSCITATE code status. 4. [facility] resident. INDUSTRIAL DIAMOND POLISHER: Dr. Parker, infectious disease. PROCEDURES/STUDIES PERFORMED: CT of the abdomen and pelvis. HISTORY: Per [facility] HOSPITAL COURSE: The patient was treated with 10 days of IV Rocephin for her E. coli sepsis. The patient was also treated with p.o. vancomycin for her C. diff colitis. Finally, her WBC is normal now and her stools are formed. The patient will be on a p.o. vancomycin taper per infectious disease specialist. She is to return back to her halfway today. It took 32 minutes total to discharge this patient today. CONDITION ON DISCHARGE: Stable. DISCHARGE MEDICATIONS: Please see medication reconciliation form. HARPER MOREJON M.D. Job#: [id number] JIV cc:Law Mckeon MD
== END 2017-12-19 15:35 | disposition home or self-care (01) | DRG 872 ==
LOC: ER 19:44 → ERHOLD 23:53 → MED/SURG3 12-08 00:43
PROVIDERS: ADMIT Internal Medicine; ATTEND Internal Medicine
DX: A41.51 Sepsis due to Escherichia coli [E. coli] (principal); N17.9 Acute kidney failure, unspecified; E87.1 Hypo-osmolality and hyponatremia; N10 Acute pyelonephritis; A04.72 Enterocolitis due to Clostridium difficile, not specified as recurrent; R65.20 Severe sepsis without septic shock; R01.1 Cardiac murmur, unspecified; D64.9 Anemia, unspecified; E87.8 Other disorders of electrolyte and fluid balance, not elsewhere classified; E78.5 Hyperlipidemia, unspecified; F03.90 Unspecified dementia, unspecified severity, without behavioral disturbance, psychotic disturbance, mood disturbance, and anxiety; Z88.0 Allergy status to penicillin; I10 Essential (primary) hypertension; E87.6 Hypokalemia; R53.81 Other malaise; Z95.2 Presence of prosthetic heart valve; Z66 Do not resuscitate; Z91.048 Other nonmedicinal substance allergy status; E83.42 Hypomagnesemia; Z91.81 History of falling; Z87.440 Personal history of urinary (tract) infections; E11.65 Type 2 diabetes mellitus with hyperglycemia
CPT/HCPCS: 36415; 51700; 71045; 71250; 74176; 80048; 80053; 80076; 81001; 82550; 82553; 82948; 83605; 83735; 84484; 85025; 87040; 87071; 87086; 87186; 87205; 87493; 90732; 93005; 93306; 94640; 96361; 96372; 97139; 99284; J0692; J0696; J1644; J7030